=== PATIENT | male | born 1995 | race Two or more races ===

== ENCOUNTER → 2017-11-08 | Outpatient (CLI) | payer OTHER ==
[2017-11-08 15:49] LABS: PLATELET COUNT, AUTOMATED 210 K/uL (150-450)
== END ==
LOC: LAB 15:19
PROVIDERS: ATTEND Nurse Practitioner Family
DX: R19.7 Diarrhea, unspecified (principal); K60.2 Anal fissure, unspecified; R10.84 Generalized abdominal pain
CPT/HCPCS: 36415; 80074; 82040; 82247; 82310; 82374; 82435; 82565; 82947; 84075; 84132; 84155; 84295; 84450; 84460; 84520; 85025; 86140; 86480